=== PATIENT | male | born 1935 | race Caucasian/White ===

== ENCOUNTER 2017-02-03 21:11 | Emergency (ER) | payer MEDICARE, MEDICAID ==
[~2017-02-03] VITALS: Ht 180.3 cm; Wt 136.4 kg
[~2017-02-03 21:11] MED LIST: ADVA230A PO; ALPH200C2 PO; AMLO10 PO; ASPI81TA82 PO; ATOR40TA PO; CELE100C PO; DOCU1CAP39 PO; DUONI INH; FENO160T2 PO; FURO1TAB93 PO; IMDU60TA PO; LEVEMIR SQ; LISI-360 PO; METO25 PO; NEUR400C PO; NOVOLOGSS SQ; OXYC1SOL5 PO; PROT40TA PO; RANO500 PO; ULTR50TA PO
[2017-02-03 21:23] VITALS: BP 86/39; PULSE 90; RESP 18; TEMP 98.9
[2017-02-03] MEDS ORDERED: SODIUM CHLOR 0.9% 250 ML INJ 250 ML IV ONE (21:45)
[2017-02-03] MEDS ORDERED: SODIUM CHLORIDE 0.9% FLUSH 10 ML FLUSH IVF PRN (21:45)
[2017-02-03 21:48] VITALS: O2SAT 98
--- NOTE | 2017-02-03 21:51 | PD ---
HPI Chief Complaint: Altered Mental Status Time Seen by Provider: 21:37 Travel History International Travel<30 days: No Contact w/Intl Traveler<30days: No Traveled to known affect area: No History of Present Illness HPI Patient is a 81-year-old male with history of coronary artery disease, hypertension, diabetes, TIA, history of colon cancer with hemicolectomy, GERD, hyperlipidemia, CHF, presents to emergency room with complaints of altered mental status. As per patient's , patient currently is hospice for COPD, request that we respect patient's wishes for DNR/DNI. reports that patient was fine this morning, reports that she fed him lunch and after lunch, them dose of morphine as well as acetaminophen, reports that he then appeared altered. Patient's reports the patient has been less responsive, reports that she has noticed increased shallow breathing with increased lethargy. Reports concern as he only responds to painful stimuli. PFSH Past Medical History Arthritis: Yes Asthma: Yes (uses inhaler at home) Autoimmune Disease: No Blood Disorders: No Bipolar Disorder: Yes Anxiety: No Depression: No Heart Rhythm Problems: Yes (PACEMAKER) Cancer: Yes ( colon cancer 1994) Cardiac Catheterization: Yes (STENTS X 3) Cardiovascular Problems: Yes High Cholesterol: Yes Chemotherapy: No Chest Pain: Yes Congestive Heart Failure: Yes COPD: Yes Cerebrovascular Accident: Yes Diabetes: Yes Patient Takes Glucophage: No Diminished Hearing: No Endocrine: Yes Gastrointestinal Disorders: Yes (COLON CANCER) GERD: No Glaucoma: No Genitourinary: Yes (PROSTATE SURGERY, chronic kidney disease) Headaches: No Hepatitis: No Hiatal Hernia: No Hypertension: Yes Immune Disorder: No Implanted Vascular Access Dvce: Yes Kidney Stones: No Musculoskeletal: No Neurologic: No Psychiatric: No Reproductive: No Respiratory: Yes Immunizations Current: Yes Migraines: No Myocardial Infarction: No Radiation Therapy: No Seizures: No Sickle Cell Disease: No Sleep Apnea: No Thyroid Disease: No Ulcer: No Past Surgical History Surgical History: No Previous Surgery Abdominal Surgery: Yes (colon tumor removed 1994) AICD: No Arteriovenous Shunt: No Body Medical Devices: PACEMAKER Cardiac Surgery: Yes (pacemaker in place) Ear Surgery: No Endocrine Surgery: No Eye Surgery: Yes (cataract L eye) Genitourinary Surgery: Yes (prostate surgery) Gynecologic Surgery: No Insulin Pump: No Joint Replacement: No Oral Surgery: No Pacemaker: Yes (RIGHT CHEST) Prostatectomy: Yes Thoracic Surgery: Yes Other Surgery: Yes Social History Alcohol Use: Yes (rarely) Tobacco Use: No Substance Use: No Allergies-Medications (Allergen,Severity, Reaction): Coded Allergies: MRI PRECAUTION (Verified Adverse Reaction, Severe, NON COMPATIBLE PACEMAKER KMD 06-12-15, 06/12/15) Reported Meds & Prescriptions Reported Meds & Active Scripts Active Reported Alpha Lipoic Acid (Alpha-Lipoic Acid (Thioctic AC) 200 Mg Tab 200 Mg PO BID Symbicort Inh (Budesonide/Formoterol Fumarate) Unknown Strength Aero Unknown Dose INH Q12HR Atorvastatin (Atorvastatin Calcium) 40 Mg Tab 40 Mg PO DAILY Celebrex (Celecoxib) 100 Mg Cap 100 Mg PO BID Lasix (Furosemide) 40 Mg Tab 40 Mg PO DAILY Gabapentin 400 Mg Cap 400 Cap PO TID Novolog Inj (Insulin Aspart) 1,000 Unit/10 Ml Vial Unknown Dose SQ ACHS Max dose at bedtime:( )units; sugars less than 70,(0)units; sugars 150-199,(1) unit; sugars 200-249,(3) units; sugars 250-299,(5) units; sugars 300-349,(7) units; sugars greater than 349,(9) units Levemir Inj (Insulin Detemir) 1,000 unit/ 10 ML Vial 64 Units SQ DAILY IN THE MORNING Do not mix with any other Insulin. Levemir Inj (Insulin Detemir) 1,000 unit/ 10 ML Vial 55 Units SQ HS Do not mix with any other Insulin. Lisinopril 10 Mg Tab 10 Mg PO DAILY Metoprolol Tartrate 25 Mg Tab 25 Mg PO BID Protonix (Pantoprazole Sodium) 40 Mg Tab 40 Mg PO DAILY Ranexa ER 12 HR (Ranolazine) 500 Mg Tab 500 Mg PO BID Tramadol (Tramadol HCl) 50 Mg Tab 50 Mg PO Q6H PRN Duoneb (Ipratropium-Albuterol Neb) 0.5-2.5 Mg/3 Ml Neb 1 Nebule INH Q4HR NEB Review of Systems ROS Limitations: Altered Mental Status General / Constitutional: No: Fever Eyes: No: Visual changes HENT: No: Headaches Cardiovascular: No: Chest Pain or Discomfort Respiratory: No: Shortness of Breath Gastrointestinal: No: Abdominal Pain Genitourinary: No: Dysuria Musculoskeletal: No: Pain Skin: No Rash Neurologic: No: Weakness Psychiatric: No: Depression Endocrine: No: Polydipsia Hematologic/Lymphatic: No: Easy Bruising Physical Exam Exam Limitations: Altered Mental Status Narrative GENERAL: moderate distress, lethargic on exam SKIN: Focused skin assessment warm/dry. HEAD: Atraumatic. Normocephalic. EYES: Pupils are pinpoint.No injection or drainage. ENT: No nasal bleeding or discharge. Mucous membranes pink and dry NECK: Trachea midline. No JVD. CARDIOVASCULAR: Regular rate and rhythm. No murmur appreciated. RESPIRATORY: No accessory muscle use. Clear to auscultation. Breath sounds equal bilaterally. GASTROINTESTINAL: Abdomen soft, non-tender, nondistended. Hepatic and splenic margins not palpable. MUSCULOSKELETAL: No obvious deformities. No clubbing. No cyanosis. No edema. NEUROLOGICAL: patient is responsive to painful stimuli only Data Data Last Documented VS Vital Signs Date Time Temp Pulse Resp B/P Pulse Ox O2 Delivery O2 Flow Rate FiO2 02/03/17 21:48 98 40 02/03/17 21:42 BiPAP 02/03/17 21:23 98.9 90 18 86/39 Orders Complete Blood Count With Diff (02/03/17 21:38) Comprehensive Metabolic Panel (02/03/17 21:38) B-Type Natriuretic Peptide (02/03/17 21:38) Act Partial Throm Time (Ptt) (02/03/17 21:38) Prothrombin Time / Inr (Pt) (02/03/17 21:38) Magnesium (Mg) (02/03/17 21:38) Ckmb (Isoenzyme) Profile (02/03/17 21:38) Troponin I (02/03/17 21:38) Arterial Blood Gas (Abg) (02/03/17 21:38) Urinalysis - C+S If Indicated (02/03/17 21:38) Blood Culture (02/03/17 21:38) Iv Access Insert/Monitor (02/03/17 21:38) Electrocardiogram (02/03/17 21:38) Ecg Monitoring (02/03/17 21:38) Oximetry (02/03/17 21:38) Oxygen Administration (02/03/17 21:38) Chest, Single Ap (02/03/17 21:38) Sodium Chloride 0.9% Flush (Ns Flush) (02/03/17 21:45) Resp Bipap / Cpap Non Invas Vt (02/03/17 21:38) Sodium Chlor 0.9% 250 Ml Inj (Ns 250 Ml (02/03/17 21:45) Lactic Acid Sepsis Protocol (02/03/17 21:46) Sodium Chlor 0.9% 1000 Ml Inj (Ns 1000 M (02/03/17 23:15) Ondansetron Inj (Zofran Inj) (02/04/17 00:15) Naloxone Inj (Narcan Inj) (02/04/17 00:15) Labs Laboratory Tests Test 02/03/17 02/03/17 02/03/17 02/03/17 21:45 21:55 22:20 23:12 White Blood Count 11.9 TH/MM3 Red Blood Count 4.11 MIL/MM3 Hemoglobin 10.2 GM/DL Hematocrit 32.2 % Mean Corpuscular Volume 78.3 FL Mean Corpuscular Hemoglobin 24.7 PG Mean Corpuscular Hemoglobin 31.6 % Concent Red Cell Distribution Width 17.7 % Platelet Count 315 TH/MM3 Mean Platelet Volume 6.9 FL Neutrophils (%) (Auto) 76.9 % Lymphocytes (%) (Auto) 8.5 % Monocytes (%) (Auto) 9.5 % Eosinophils (%) (Auto) 4.3 % Basophils (%) (Auto) 0.8 % Neutrophils # (Auto) 9.2 TH/MM3 Lymphocytes # (Auto) 1.0 TH/MM3 Monocytes # (Auto) 1.1 TH/MM3 Eosinophils # (Auto) 0.5 TH/MM3 Basophils # (Auto) 0.1 TH/MM3 CBC Comment AUTO DIFF Differential Comment AUTO DIFF CONFIRMED Prothrombin Time 10.8 SEC Prothromb Time International 1.0 RATIO Ratio Activated Partial 27.8 SEC Thromboplast Time Sodium Level 143 MEQ/L Potassium Level 4.8 MEQ/L Chloride Level 101 MEQ/L Carbon Dioxide Level 38.7 MEQ/L Anion Gap 3 MEQ/L Blood Urea Nitrogen 28 MG/DL Creatinine 1.82 MG/DL Estimat Glomerular Filtration 36 ML/MIN Rate Random Glucose 80 MG/DL Calcium Level 9.0 MG/DL Magnesium Level 2.2 MG/DL Total Bilirubin 0.2 MG/DL Aspartate Amino Transf 15 U/L (AST/SGOT) Alanine Aminotransferase 16 U/L (ALT/SGPT) Alkaline Phosphatase 106 U/L Total Creatine Kinase 100 U/L Troponin I LESS THAN 0.02 NG/ML B-Type Natriuretic Peptide 70 PG/ML Total Protein 7.0 GM/DL Albumin 2.9 GM/DL Lactic Acid Level 0.3 mmol/L Blood Gas Puncture Site RT RADIAL Blood Gas Patient Temperature 98.6 Blood Gas HCO3 35 mmol/L Blood Gas Base Excess 9.0 mmol/L Blood Gas Oxygen Saturation 91 % Arterial Blood pH 7.30 Arterial Blood Partial 75 mmHg Pressure CO2 Arterial Blood Partial 72 mmHG Pressure O2 Arterial Blood Oxygen Content 12.9 Vol % Arterial Blood 1.4 % Carboxyhemoglobin Arterial Blood Methemoglobin 1.2 % Blood Gas Hemoglobin 10.1 G/DL Oxygen Delivery Device NPPV Blood Gas Ventilator Setting IPAP12/EPAP5 Blood Gas Inspired Oxygen 40 % Urine Color YELLOW Urine Turbidity CLEAR Urine pH 5.0 Urine Specific [place] 1.015 Urine Protein TRACE mg/dL Urine Glucose (UA) NEG mg/dL Urine Ketones NEG mg/dL Urine Occult Blood NEG Urine Nitrite NEG Urine Bilirubin NEG Urine Urobilinogen LESS THAN 2.0 MG/DL Urine Leukocyte Esterase TRACE Urine RBC LESS THAN 1 /hpf Urine WBC 4 /hpf Urine Hyaline Casts 4 /lpf Urine Mucus FEW /lpf Microscopic Urinalysis Comment CULT NOT INDICATED MDM Medical Decision Making Medical Screen Exam Complete: Yes Emergency Medical Condition: Yes Interpretation(s) ekg at 2233: NSR at 96bpm, qt/qtc: 354/408, no acte st or t wave changes Vital Signs Date Time Temp Pulse Resp B/P Pulse Ox O2 Delivery O2 Flow Rate FiO2 02/03/17 21:36 100 BiPAP 02/03/17 21:23 98.9 90 18 86/39 Differential Diagnosis CHF exacerbation, COPD exacerbation, dehydration, electrolyte abnormality, ACS, UTI, pneumonia, influenza Narrative Course Patient is a 81-year-old male who currently is on hospice, presents to emergency room with his for altered mental status and lethargy and hypotensive. reports that symptoms began after she gave him 2 mg of morphine as well as Tylenol this afternoon after lunch. Patient this time is only responsive to painful stimuli. Patient is a hospice patient, requests the patient remain DNR/DNR at this time. Patient is hypotensive with a blood pressure of 86/39. Fluid bolus ordered to for patient. Patient was also placed on BiPAP Labs as well as lactic acid ordered. Laboratory Tests Test 02/03/17 02/03/17 02/03/17 21:45 21:55 22:20 White Blood Count 11.9 TH/MM3 (4.0-11.0) Red Blood Count 4.11 MIL/MM3 (4.50-5.90) Hemoglobin 10.2 GM/DL (13.0-17.0) Hematocrit 32.2 % (39.0-51.0) Mean Corpuscular Volume 78.3 FL (80.0-100.0) Mean Corpuscular Hemoglobin 24.7 PG (27.0-34.0) Mean Corpuscular Hemoglobin 31.6 % Concent (32.0-36.0) Red Cell Distribution Width 17.7 % (11.6-17.2) Platelet Count 315 TH/MM3 (150-450) Mean Platelet Volume 6.9 FL (7.0-11.0) Neutrophils (%) (Auto) 76.9 % (16.0-70.0) Lymphocytes (%) (Auto) 8.5 % (9.0-44.0) Monocytes (%) (Auto) 9.5 % (0.0-8.0) Eosinophils (%) (Auto) 4.3 % (0.0-4.0) Basophils (%) (Auto) 0.8 % (0.0-2.0) Neutrophils # (Auto) 9.2 TH/MM3 (1.8-7.7) Lymphocytes # (Auto) 1.0 TH/MM3 (1.0-4.8) Monocytes # (Auto) 1.1 TH/MM3 (0-0.9) Eosinophils # (Auto) 0.5 TH/MM3 (0-0.4) Basophils # (Auto) 0.1 TH/MM3 (0-0.2) CBC Comment AUTO DIFF Differential Comment AUTO DIFF CONFIRMED Prothrombin Time 10.8 SEC (9.8-11.6) Prothromb Time International 1.0 RATIO Ratio Activated Partial 27.8 SEC Thromboplast Time (24.3-30.1) Sodium Level 143 MEQ/L (136-145) Potassium Level 4.8 MEQ/L (3.5-5.1) Chloride Level 101 MEQ/L (98-107) Carbon Dioxide Level 38.7 MEQ/L (21.0-32.0) Anion Gap 3 MEQ/L (5-15) Blood Urea Nitrogen 28 MG/DL (7-18) Creatinine 1.82 MG/DL (0.60-1.30) Estimat Glomerular Filtration 36 ML/MIN (>89) Rate Random Glucose 80 MG/DL (74-106) Calcium Level 9.0 MG/DL (8.5-10.1) Magnesium Level 2.2 MG/DL (1.5-2.5) Total Bilirubin 0.2 MG/DL (0.2-1.0) Aspartate Amino Transf 15 U/L (15-37) (AST/SGOT) Alanine Aminotransferase 16 U/L (12-78) (ALT/SGPT) Alkaline Phosphatase 106 U/L (45-117) Total Creatine Kinase 100 U/L (39-308) Troponin I LESS THAN 0.02 NG/ML (0.02-0.05) B-Type Natriuretic Peptide 70 PG/ML (0-100) Total Protein 7.0 GM/DL (6.4-8.2) Albumin 2.9 GM/DL (3.4-5.0) Lactic Acid Level 0.3 mmol/L (0.4-2.0) Blood Gas Puncture Site RT RADIAL Blood Gas Patient Temperature 98.6 Blood Gas HCO3 35 mmol/L (22-26) Blood Gas Base Excess 9.0 mmol/L (-2-2) Blood Gas Oxygen Saturation 91 % (90-100) Arterial Blood pH 7.30 (7.380-7.420) Arterial Blood Partial 75 mmHg (38-42) Pressure CO2 Arterial Blood Partial 72 mmHG Pressure O2 (61-120) Arterial Blood Oxygen Content 12.9 Vol % (12.0-20.0) Arterial Blood 1.4 % (0-4) Carboxyhemoglobin Arterial Blood Methemoglobin 1.2 % (0-2) Blood Gas Hemoglobin 10.1 G/DL (12.0-16.0) Oxygen Delivery Device NPPV Blood Gas Ventilator Setting IPAP12/EPAP5 Blood Gas Inspired Oxygen 40 % I did call pt's and talked to her extensively about treatment plan for patient. Patient's does not want aggressive medical treatment, request that patient be made comfortable and pain free. Discussed with possible transfer to inpatient hospice facility for end of life care, patients is agreeable to having patient transferred to hospice care center in lieu of medical admission. Reports "i just want him to be comfortable." Hospice nurse on route to ER to evaluate patient volunteer assistant evaluated patient in ER. Will transfer patient to inpatient hospice Diagnosis Primary Impression: Hospice care Admitting Information Admitting Physician Requests: Observation Disposition: 51 HOSPICE/MED FACILITY Rebekah Ken DO Feb 03, 2017 21:51
[2017-02-03] MEDS ORDERED: LISI10TA3 PO (21:52)
[2017-02-03] MEDS ORDERED: TRAM50TA PO (21:52)
[2017-02-03] MEDS ORDERED: METO25TA3 PO (21:52)
[2017-02-03] MEDS ORDERED: IPRASOL INH (21:52)
[2017-02-03] MEDS ORDERED: RANO500 PO (21:52)
[2017-02-03] MEDS ORDERED: PROT40TA PO (21:52)
--- NOTE | 2017-02-03 22:06 | RADRPT ---
EXAM DATE/TIME: 02/03/2017 21:48 [facility] COMPARISON: CHEST SINGLE AP, June 09, 2015, 17:28. INDICATIONS : Short of breath. MEDICAL HISTORY : None. SURGICAL HISTORY : None. ENCOUNTER: Initial ACUITY: 1 day PAIN SCORE: Non-responsive. LOCATION: Bilateral chest FINDINGS: Pacemaker device is noted with control pack over the right chest. Mild vascular congestion. No defini te infiltrate or effusion. CONCLUSION: No acute disease Robbi Alejo MD on February 03, 2017 at 22:03 Board Certified Radiologist. This report was verified electronically.
[2017-02-03 22:08] LABS: AUTOMATED NEUTROPHIL # 9.2 TH/MM3 (1.8-7.7); BASOPHIL # 0.1 TH/MM3 (0-0.2); BASOPHIL % 0.8 % (0.0-2.0); EOSINOPHIL # 0.5 TH/MM3 (0-0.4); EOSINOPHIL % 4.3 % (0.0-4.0); HEMATOCRIT 32.2 % (39.0-51.0); LYMPH % 8.5 % (9.0-44.0); MEAN CELL VOLUME 78.3 FL (80.0-100.0); MEAN CORPUSCULAR HEMOGLOBIN 24.7 PG (27.0-34.0); MEAN CORPUSCULAR HGB CONC 31.6 % (32.0-36.0); MONO % 9.5 % (0.0-8.0); NEUT % 76.9 % (16.0-70.0); PLATELET COUNT 315 TH/MM3 (150-450); RED BLOOD COUNT 4.11 MIL/MM3 (4.50-5.90); RED CELL DISTRIBUTION WIDTH 17.7 % (11.6-17.2); WHITE BLOOD COUNT 11.9 TH/MM3 (4.0-11.0)
[2017-02-03 22:11] LABS: HEMO FLAGS AUTO DIFF
[2017-02-03 22:20] LABS: APTT (PATIENT) 27.8 SEC (24.3-30.1); PROTHROMBIN TIME - PATIENT 10.8 SEC (9.8-11.6)
[2017-02-03] MEDS ORDERED: LEVEMIR SQ ×2 (22:21)
[2017-02-03] MEDS ORDERED: NOVOLOGP2 SQ (22:21)
[2017-02-03] MEDS ORDERED: GABA400C5 PO (22:23)
[2017-02-03] MEDS ORDERED: FURO1TAB60 PO (22:23)
[2017-02-03] MEDS ORDERED: ATOR40TA16 PO (22:26)
[2017-02-03] MEDS ORDERED: CELE100C PO (22:26)
[2017-02-03] MEDS ORDERED: SYMB160A INH (22:27)
[2017-02-03 22:28] LABS: ANION GAP 3 MEQ/L (5-15); AST (GOT) 15 U/L (15-37); BICARBONATE 38.7 MEQ/L (21.0-32.0); BLOOD UREA NITROGEN 28 MG/DL (7-18); CHLORIDE 101 MEQ/L (98-107); GLOMERULAR FILTRATION RATE 36 ML/MIN (>89); MAGNESIUM 2.2 MG/DL (1.5-2.5); POTASSIUM 4.8 MEQ/L (3.5-5.1); SODIUM (NA) 143 MEQ/L (136-145)
[2017-02-03] MEDS ORDERED: ALPHTAB PO (22:28)
[2017-02-03 22:33] LABS: ALKALINE PHOSPHATASE 106 U/L (45-117); ALT (GPT) 16 U/L (12-78); TOTAL BILIRUBIN ADULT 0.2 MG/DL (0.2-1.0)
[2017-02-03 22:36] LABS: BLOOD GAS CARBOXYHEMOGLOBIN 1.4 % (0-4); BLOOD GAS HCO3 35 mmol/L (22-26); BLOOD GAS METHEMOGLOBIN 1.2 % (0-2); BLOOD GAS O2 HGB SATURATION 91 % (90-100); BLOOD GAS OXYGEN CONTENT 12.9 Vol % (12.0-20.0); BLOOD GAS PCO2 75 mmHg (38-42); BLOOD GAS PO2 72 mmHG (61-120); BLOOD GAS TOTAL HGB 10.1 G/DL (12.0-16.0); TEMP CORR TO 98.6
[2017-02-03 22:38] LABS: CRITICAL VALUE YES; DRAW SITE RT RADIAL; FIO2 40 %; NUMBER OF ARTERIAL PUNCTURES 2; OXYGEN DEVICE NPPV; STAT YES; ULNAR PULSE PRESENT; VENT SETTINGS IPAP12/EPAP5
[2017-02-03 22:43] LABS: SCAN/DIFF AUTO DIFF CONFIRMED
[2017-02-03 22:53] LABS: CREATINE KINASE 100 U/L (39-308)
[2017-02-03] MEDS ORDERED: SODIUM CHLOR 0.9% 1000 ML INJ 1,000 ML IV ONE (23:15)
[2017-02-03 23:41] LABS: BLOOD, URINE NEG (NEG); GLUCOSE,URINE NEG (NEG); HYALINE CAST, URINE 4 /lpf (RARE); KETONE, URINE NEG (NEG); MUCUS URINE FEW /lpf (OCC); NITRITE,URINE NEG (NEG); URINE COLOR YELLOW (YELLW/STRAW)
[2017-02-03 23:44] LABS: COMMENT (UR) CULT NOT INDICATED; CULTURE IF INDICATED CULT NOT INDICATED
[2017-02-04] MEDS ORDERED: ONDANSETRON HCL 4 MG/2 ML VIAL IV PUSH ONE (00:15)
[2017-02-04] MEDS ORDERED: NALOXONE HCL 0.4 MG/ML AMP IV PUSH ONE (00:15)
--- NOTE | 2017-02-04 09:42 | EKG ---
Date Performed: 02/03/2017 Time Performed: 22:33:44 PTAGE: 81 years EKG: Sinus rhythm INDETERMINATE AXIS RIGHT BUNDLE BRANCH BLOCK ABNORMAL ECG PREVIOUS TRACING : 06/10/2015 00.18 No significant change from previous tracing noted. DOCTOR: Elvis Cottrell Interpretating Date/Time 02/04/2017 09:40:43
== END 2017-02-04 02:16 | disposition hospice, inpatient (51) ==
LOC: NEPC 21:11
DX: R41.82 Altered mental status, unspecified (principal); R53.83 Other fatigue; R94.31 Abnormal electrocardiogram [ECG] [EKG]; E11.9 Type 2 diabetes mellitus without complications; E78.5 Hyperlipidemia, unspecified; I10 Essential (primary) hypertension; Z51.5 Encounter for palliative care; Z66 Do not resuscitate; Z79.4 Long term (current) use of insulin; Z87.39 Personal history of other diseases of the musculoskeletal system and connective tissue; Z87.09 Personal history of other diseases of the respiratory system; Z86.79 Personal history of other diseases of the circulatory system; Z85.038 Personal history of other malignant neoplasm of large intestine; Z87.19 Personal history of other diseases of the digestive system; Z86.59 Personal history of other mental and behavioral disorders
CPT/HCPCS: 36600; 71010; 80053; 81001; 82550; 82805; 83605; 83735; 83880; 84484; 85025; 85610; 85730; 87040; 93005; 96360; 99285; J7050